=== PATIENT | female | born 1940 | race Caucasian/White ===

== ENCOUNTER 2017-11-08 07:58 | Day surgery (SDC) | payer OTHER, BC ==
[2017-11-03 09:15] VITALS: BMI 27.3
[2017-11-08] MEDS: CYCLOPENTOLATE HCL 1% OPHTH SOLN 2 ML BOTTLE ONE ×5 (08:15→08:35)
[2017-11-08] MEDS: KETOROLAC TROMETHAMINE 0.5% 5 ML BOTTLE OPTHALMIC ONE ×5 (08:15→08:35)
[2017-11-08] MEDS: PHENYLEPHRINE 2.5% OPHTH SOLN 15 ML BOTTLE ONE ×5 (08:15→08:40)
[2017-11-08] MEDS: TROPICAMIDE 1% OPHTH SOLN 15 ML BOTTLE ONE ×4 (08:15→08:35)
[2017-11-08] MEDS ORDERED: TROPICAMIDE 1% OPHTH SOLN 15 ML BOTTLE OD ONE (08:40)
[2017-11-08] MEDS: GENTAMICIN SULFATE 0.3% OPHTHALMIC (EYE DROPS) 5ML BOTTLE ONE ×2 (08:45→09:00)
[2017-11-08] MEDS ORDERED: MIDAZOLAM HCL 2 MG/2 ML SINGLE DOSE VIAL ONE (09:16)
[2017-11-08] MEDS ORDERED: BETAXOLOL HCL 0.25% OPHTHALMIC 10 ML DROPSBTL ONE (09:17)
[2017-11-08] MEDS ORDERED: BACITRACIN/POLYMYXIN OPH OINT 3.5 GM TUBE ONE ×2 (09:17→12:37)
[2017-11-08] MEDS ORDERED: EPI-SHUGARCAINE (EPINEPHRINE 0.025% & LIDOCAINE-PF 0.75%) 4ML ONE ×2 (09:18→12:37)
[2017-11-08] MEDS ORDERED: TETRACAINE 0.5% OPHTH SOLN 2 ML BOTTLE ONE ×2 (09:18→12:38)
[2017-11-08] MEDS ORDERED: POVIDONE-IODINE 5% OPHTHALMIC PREP 30 ML SOLUTION ONE (09:18)
[2017-11-08] MEDS ORDERED: NEO/POLYMYX B SULF/DEXAMETH OPHTHALMIC 5ML BOTTLE ONE ×2 (09:19→12:38)
[2017-11-08] MEDS ORDERED: ACETYLCHOLINE 1:100 INTRA-OCUL 20 MG/2 ML KIT ONE ×2 (09:19→12:38)
[2017-11-08] MEDS ORDERED: PROPOFOL 20 ML ONE (12:31)
[2017-11-08] MEDS ORDERED: LIDOCAINE HCL/PF 2% SDV 5ML VIAL ONE ×2 (12:33→12:37)
[2017-11-08] MEDS ORDERED: ACETAMINOPHEN 325 MG TABLET (FP) PO PRN (12:35)
[2017-11-08] MEDS ORDERED: LIDOCAINE HCL 2% JELLY 10 ML CARTRIDGE ONE (12:38)
[2017-11-08] MEDS ORDERED: BUPIVACAINE HCL/PF 0.5% (5MG/ML) 10 ML VIAL ONE (12:38)
[2017-11-08] MEDS ORDERED: EPINEPHrine/PF 1 MG/1 ML (1:1,000) AMPULE ONE (12:43)
[2017-11-08] MEDS ORDERED: TETRACAINE 0.5% OPHTH SOLN 2 ML BOTTLE OD ONE (13:04)
[2017-11-08] MEDS ORDERED: LIDOCAINE HCL/PF 2% SDV 5ML VIAL INF ONE (13:05)
[2017-11-08] MEDS ORDERED: BUPIVACAINE HCL/PF (5 MG/ML) 30 ML VIAL IJ ONE (13:05)
[2017-11-08] MEDS ORDERED: LIDOCAINE HCL 2% JELLY (5 ML/TUBE) TP ONE (13:05)
[2017-11-08] MEDS ORDERED: EPINEPHrine/PF 1 MG/1 ML (1:1,000) AMPULE IM ONE (13:14)
[2017-11-08] MEDS ORDERED: SODIUM HYALURONATE 8.5 MG/0.85 ML DISP.SYRIN IO ONE (13:14)
[2017-11-08] MEDS ORDERED: CHONDROITIN SU A/HYALUR SOD 1 KIT IO ONE (13:14)
[2017-11-08] MEDS ORDERED: BETAXOLOL HCL 0.25% OPHTHALMIC 10 ML DROPSBTL OD ONE (13:31)
[2017-11-08] MEDS ORDERED: BACITRACIN/POLYMYXIN OPH OINT 3.5 GM TUBE OD ONE (13:40)
[2017-11-08 14:28] VITALS: TEMP 97.7
[2017-11-08 14:38] VITALS: BP 121/66; PULSE 72
--- NOTE | 2017-11-09 09:35 | OP ---
DATE OF OPERATION: 11/08/2017 TITLE OF PROCEDURE: Planned extracapsular cataract extraction, phacoemulsification, insertion of posterior chamber lens implant in the right eye. 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 ANESTHESIOLOGIST: Rex Sow MD COMPLICATIONS: None. PREOPERATIVE DIAGNOSIS: Cataract right eye. POSTOPERATIVE DIAGNOSIS: Cataract, right eye. FINDINGS AND PROCEDURE: After successful peribulbar anesthesia was given, the patient was prepped and draped in the usual manner to expose the right eye and the operating room microscope brought into position over the right eye. It should be noted that Tegaderm strips were used to retract the eyelashes inferiorly and superiorly. The speculum was inserted. Superior fornix-based flap was then fashioned for 12 mm using Elsa forceps. Hemostasis achieved with electrocautery. Limbal groove was fashioned for 3 mm with a crescent blade, dissecting anterior into clear cornea, and a 3-mm blade was used to enter the anterior chamber. Then, under Viscoat, 360-degree anterior capsulotomy was performed and removed from the eye, and then phacoemulsification was done in approximately 2 minutes' time followed by irrigation and aspiration of all cortical material and an intact posterior capsule and a red reflex present. Provisc was injected in the posterior chamber to deep in the posterior capsule. The implant was inspected carefully with the microscope, found to be free of defects or flaws. It was folded, placed in the Provisc filled cartridge, the cartridge placed in the injector, and the implant was injected into the eye such that the inferior haptic was in inferior capsular bag and superior haptic was in superior capsular bag and retaining the horizontal position with a Sinskey hook. Provisc was aspirated out, replaced with Miochol, Miostat, and BSS, and the wounds were closed with a single interrupted Ethilon suture. Tested for leakage, and none was found. Conjunctival Tenon's flap reapproximated. At this point, the implant was fixated in the capsular bag and centrally located with a round pupil, intact posterior capsule and a red reflex present. Topical Betoptic S and Maxitrol ophthalmic suspensions were placed as were bacitracin and polymyxin B ophthalmic ointment. The Tegaderm strips and the lid speculum were removed from the lids, the lids were closed, and a patch and shield placed on the eye. The patient was then discharged from the operating room into the recovery area in good condition, having tolerated the procedure well. MARCO A GRAYSON M.D. [id number]
== END 2017-11-08 14:45 | disposition home or self-care (01) ==
LOC: FASU 07:58
PROVIDERS: ATTEND Ophthalmology
PROC: 08RJ3JZ Replacement of Right Lens with Synthetic Substitute, Percutaneous Approach (ICD-10-PCS; principal; 2017-11-08 13:14)
DX: H26.9 Unspecified cataract (principal)

== ENCOUNTER 2017-12-27 11:45 | Day surgery (SDC) | payer OTHER, BC ==
[2017-12-23 09:35] VITALS: BMI 27.3
[2017-12-27] MEDS ORDERED: MIDAZOLAM HCL 2 MG/2 ML SINGLE DOSE VIAL ONE (11:54)
[2017-12-27] MEDS ORDERED: ACETAMINOPHEN 325 MG TABLET (FP) PO PRN (11:56)
[2017-12-27] MEDS ORDERED: BETAXOLOL HCL 0.25% OPHTHALMIC 10 ML DROPSBTL ONE (12:04)
[2017-12-27] MEDS ORDERED: BACITRACIN/POLYMYXIN OPH OINT 3.5 GM TUBE ONE (12:04)
[2017-12-27] MEDS: KETOROLAC TROMETHAMINE 0.5% 5 ML BOTTLE OPTHALMIC ONE ×2 (12:05→12:10)
[2017-12-27] MEDS: PHENYLEPHRINE 2.5% OPHTH SOLN 15 ML BOTTLE ONE ×2 (12:05→12:10)
[2017-12-27] MEDS ORDERED: EPI-SHUGARCAINE (EPINEPHRINE 0.025% & LIDOCAINE-PF 0.75%) 4ML ONE (12:05)
[2017-12-27] MEDS: TROPICAMIDE 1% OPHTH SOLN 15 ML BOTTLE ONE ×2 (12:05→12:10)
[2017-12-27] MEDS ORDERED: TETRACAINE 0.5% OPHTH SOLN 2 ML BOTTLE ONE (12:05)
[2017-12-27] MEDS ORDERED: LIDOCAINE HCL/PF 2% SDV 5ML VIAL ONE (12:05)
[2017-12-27] MEDS: CYCLOPENTOLATE HCL 1% OPHTH SOLN 2 ML BOTTLE ONE ×2 (12:05→12:10)
[2017-12-27] MEDS ORDERED: BUPIVACAINE HCL/PF 0.5% (5MG/ML) 10 ML VIAL ONE (12:06)
[2017-12-27] MEDS ORDERED: LIDOCAINE HCL 2% JELLY 10 ML CARTRIDGE ONE (12:06)
[2017-12-27] MEDS ORDERED: NEO/POLYMYX B SULF/DEXAMETH OPHTHALMIC 5ML BOTTLE ONE (12:06)
[2017-12-27] MEDS ORDERED: GENTAMICIN SULFATE 0.3% OPHTHALMIC (EYE DROPS) 5ML BOTTLE ONE (12:18)
[2017-12-27 13:53] VITALS: TEMP 97.6
[2017-12-27 14:17] VITALS: BP 138/66; PULSE 74
--- NOTE | 2017-12-27 14:27 | OP ---
DATE OF OPERATION: 12/27/2017 PROCEDURE: Planned extracapsular cataract extraction, phacoemulsification, insertion of posterior chamber lens implant, left eye. SURGEON: Marco A Carter MD LASTER HAND SURGEON: Marco A Catrer MD ANESTHESIA: Local with standby. NURSE INFORMATION AND DATA ARCHITECT ANALYST: Han Rowland CRNA ANESTHESIOLOGIST: COMPLICATIONS: None. PREOPERATIVE DIAGNOSIS: Cataract left eye. POSTOPERATIVE DIAGNOSIS: Cataract left eye. DESCRIPTION OF PROCEDURE: After successful peribulbar anesthesia, lid block, and digital massage was given to the left eye, the patient was prepped and draped in the usual manner exposing the left eye. A lid speculum was inserted. The microscope was in position over the eye. A superior fornix-based flap was then fashioned for 12 mm using Elsa scissors and 0.12 forceps and hemostasis achieved with electrocautery. The limbal grill was then fashioned for 3 mm with a crescent blade and dissected anterior into clear cornea. A 3-mm blade was used to enter the anterior chamber, and then under Viscoat, a 360-degree anterior capsulotomy was performed and leaflet removed from the eye. Phacoemulsification of the entire nucleus was then done in approximately 2 minutes time followed by irrigation and aspiration of all cortical material leaving the entire posterior capsule and red reflex present. Provisc was aspirated out and replaced with Miostat and BSS, and the wound was closed with a single interrupted 2-0 Ethilon suture and tested for leakage, and none was found. The conjunctival Tenon flap was reapproximated. At this point, the implant was fixated in the capsular bag, centrally located with a round pupil intact, posterior capsule and red reflex present. Topical Betoptic-S and Maxitrol ophthalmic suspensions were placed as was bacitracin and polymyxin B ophthalmic ointment. Then the Tegaderm strips and lid speculum were removed from the lids. The lids was closed and a patch and shield placed on the eye. The patient was then discharged from the operating room to the recovery room in good condition having tolerated the procedure well. Jennifer [id number]
== END 2017-12-27 14:20 | disposition home or self-care (01) ==
LOC: FASU 11:45
PROVIDERS: ATTEND Ophthalmology
PROC: 08RK3JZ Replacement of Left Lens with Synthetic Substitute, Percutaneous Approach (ICD-10-PCS; principal; 2017-12-27 12:58)
DX: H26.9 Unspecified cataract (principal)